=== PATIENT | female | born 1935 | race Caucasian/White ===

== ENCOUNTER → 2018-11-28 10:00 | Observation (INO) ==
--- NOTE | 2018-11-27 11:21 | History & Physical Report ---
*Admission Date: 11/27/18 *Chief complaint: MOSQUEDA and HTN *History of present illness: Piper Horowitz is an 83-year-old female who is presented to clinic twice this week due to elevated blood pressure. Previously controlled on lisinopril 5 mg twice a day with normal values. Earlier this week she came in hypertensive and was increased on lisinopril to 10 mg twice a day. Presented to clinic today due to headache, mild dizziness, and significantly elevated blood pressure. States she took her 10 mg lisinopril this morning and her blood pressure at home on home monitoring was higher than in clinic. Reportedly 190s/100s at home. Denies chest pain, shortness of breath, lower extremity edema, palpitations. At this time given worsening hypertension, dizziness, headache, will admit patient for hypertensive urgency and further work-up. Transferred to [facility] from clinic for direct admission. [facility] History I have reviewed the patient's past medical history: Yes Medical History: Reports:: Hyperlipidemia, Hypertension Denies:: Atrial Fibrillation, Congenital Heart Disease, Coronary Artery Disease, Diabetes Mellitus Type 2, Renal Disease *Have you ever received a pneumonia vaccine?: Yes *Have you received a flu vaccine this season?: Yes Laterality Cases: Left: Carpal Tunnel Release Other Surgeries: Yes: Colonoscopy Amputation: No Fractures: Yes (left arm) - *Social History Educational Level: Completed High School Smoking Status: Never smoker Alcohol Intake: never *Occupational Status:: retired *Travel in the last 8 weeks: None Family Hx:: No significant family history, Non-contributory Review of Systems - Review of Systems Review of systems:: pertinent systems reviewed and negative unless documented below Meds Allergies Allergy/AdvReac Type Severity Reaction Status Date / Time Morphine Allergy Unknown Uncoded 06/17/17 14:10 Exam I & O for Last 24 hours: Intake & Output 11/24/18 11/25/18 11/26/18 11/27/18 23:59 23:59 23:59 23:59 Weight 65.317 kg Narrative: Well-developed 83-year-old female who appears stated age. In no acute distress Not dyspneic on interview, lungs clear to auscultation with no crackles or rhonchi Heart regular with no murmur, no peripheral edema Extraocular movement intact, no focal neurologic deficits, cranial nerves II through XII intact Abdomen soft, nontender, normal bowel sounds Skin without rash Alert and oriented to person and place - *Routine HEENT Exam Head: Present: normocephalic Eye: Present: EOMI, PERRL ENT: Present: mucous membranes moist - *Routine Neck Exam Present: supple. Absent: lymphadenopathy - *Routine Respiratory Exam Present: CTA bilaterally - *Routine Cardiovascular Exam Present: RRR - *Routine Abdominal Exam Present: soft, normoactive bowel sounds. Absent: tenderness - *Routine Extremities Exam Absent: cyanosis, clubbing, edema - *Routine Skin Exam Present: warm. Absent: rash - *Routine Neurological Exam Present: alert, oriented X3 Assessment and Plan (1) Hypertensive urgency Current visit: Yes Status: Acute Category: Medical Code(s): I16.0 - Hypertensive urgency - Assessment and plan all Dx Assessment and Plan for all problems:: Blood pressure significantly elevated, symptomatic from them. Will obtain labs. Increase oral medications as prescribed. Monitor for blood pressure improvement over the course of the day. Admit under observation for further management.
[2018-11-27 11:47] LABS: Basophils % 0.7 % (0.1-2.0); Eosinophils # 0.2 K/mm3 (0.0-0.4); Hematocrit 36.6 % (37.0-47.0); Hemoglobin 12.2 g/dL (12.2-16.2); Lymphocytes # 1.2 K/mm3 (0.7-4.5); Lymphocytes % 30.2 % (10-50); Mean Corpuscular HGB Conc 33.3 g/dL (31.8-35.4); Mean Corpuscular Hemoglobin 29.8 pg (27.0-31.2); Mean Corpuscular Volume 89.4 fl (81-99); Mean Platelet Volume 8.8 fl (7.4-10.4); Monocytes # 0.2 K/mm3 (0.1-1.0); Monocytes % 6.3 % (1.7-9.3); Neutrophils # 2.2 K/mm3 (1.8-7.8); Neutrophils % 57.7 % (37.0-80.0); Platelet Count 166 K/mm3 (142-424); Red Cell Distribution Width 13.5 % (11.5-17.5); White Blood Count 3.8 K/mm3 (4.8-10.8)
[2018-11-27 11:52] LABS: Albumin Level 3.6 gm/dL (3.4-5.0); Anion Gap 15.3 mEq/L (5-15); Bilirubin,Total 0.8 mg/dL (0.2-1.0); Calcium 8.9 mg/dL (8.5-10.1); Globulin 3.5 gm/dl (1.3-3.2); Potassium 4.3 mmoL/L (3.5-5.1); Total Protein,Serum 7.1 gm/dL (6.4-8.2)
--- NOTE | 2018-11-27 11:56 | Pharmacy Consult Notes ---
[facility] Pharmacy VTE Monitoring - Patient Demographics Admission date: 11/27/18 Report Date: 11/27/18 Time: 11:55 Allergies/Adverse Reactions: Patient Allergies Morphine Allergy (Unknown, Uncoded 06/17/17 14:10) Height: 1.63 m Weight: 65.317 kg - VTE Risk Labs: VTE Related Lab Results Hgb 12.2 g/dL (12.2-16.2) 11/27/18 11:35 Hct 36.6 % (37.0-47.0) L 11/27/18 11:35 Plt Count 166 K/mm3 (142-424) 11/27/18 11:35 BUN 26 mg/dL (7-18) H 11/27/18 11:35 Creatinine 1.47 mg/dL (0.55-1.02) H 11/27/18 11:35 Estimated Creat Clear 29 mL/min (50-200) 11/27/18 11:35 Was VTE Risk Assessment Performed: Yes VTE Risk Level: Very Low Risk - Prophylaxis VTE Prophylaxis Ordered?: Yes Types of VTE Prophylaxis: TEDS Knee High Location of Applied Device: Bilateral Lower Extremeties - VTE Diagnosis Confirmed Treatment or plan recommended: Continue Current Treatment
[2018-11-28 06:52] LABS: Albumin Level 3.1 gm/dL (3.4-5.0); Albumin/Globulin Ratio 1.1 (1.1-1.8); Anion Gap 13.6 mEq/L (5-15); Bilirubin,Total 0.6 mg/dL (0.2-1.0); Calcium 8.6 mg/dL (8.5-10.1); Globulin 2.7 gm/dl (1.3-3.2); Potassium 4.6 mmoL/L (3.5-5.1); Total Protein,Serum 5.8 gm/dL (6.4-8.2)
--- NOTE | 2018-11-28 07:51 | Discharge Summary ---
General - General Admission date:: 11/27/18 Discharge date: 11/28/18 HPI HPI: Piper Horowitz is an 83-year-old female who is presented to clinic twice this week due to elevated blood pressure. Previously controlled on lisinopril 5 mg twice a day with normal values. Earlier this week she came in hypertensive and was increased on lisinopril to 10 mg twice a day. Presented to clinic today due to headache, mild dizziness, and significantly elevated blood pressure. States she took her 10 mg lisinopril this morning and her blood pressure at home on home monitoring was higher than in clinic. Reportedly 190s/100s at home. Denies chest pain, shortness of breath, lower extremity edema, palpitations. At this time given worsening hypertension, dizziness, headache, will admit patient for hypertensive urgency and further work-up. Transferred to [facility] from clinic for direct admission. Hospital Course Hospital Course: Patient was admitted, troponins were negative, other labs were unremarkable and imaging studies were unremarkable as well. Patient's neurologic exam was unremarkable and she was started on regular doses of her blood pressure medicines. Overnight these did very nicely, and this morning she is feeling much better, blood pressure is normalized in the 130 range systolically. Patient will be discharged home. She has scheduled follow-up with me on Friday. We will make sure she has prescriptions for blood pressure medications. Of note she has been in the process of worked up for dementia issues and medicine compliance at home may be an issue. Objective Vital signs: Temp Pulse Resp BP Pulse Ox 97.0 F L 68 18 138/65 98 11/28/18 05:52 11/28/18 05:52 11/28/18 05:52 11/28/18 05:52 11/28/18 05:52 Narrative: Heart rate regular, no murmurs. Lungs clear, neurologic exam intact, patient is pleasant, talkative. Oropharynx clear, no edema. Results Labs on day of discharge: Labs from last 24 hours 11/28/18 11/27/18 11/27/18 06:05 11:35 11:35 WBC 3.8 L RBC 4.10 L Hgb 12.2 Hct 36.6 L MCV 89.4 MCH 29.8 MCHC 33.3 RDW 13.5 Plt Count 166 MPV 8.8 Neut % (Auto) 57.7 Lymph % (Auto) 30.2 Luce % (Auto) 6.3 Eos % (Auto) 5.0 Baso % (Auto) 0.7 Neut # (Auto) 2.2 Lymph # (Auto) 1.2 Luce # (Auto) 0.2 Eos # (Auto) 0.2 Baso # (Auto) 0.0 Sodium 143 144 Potassium 4.6 4.3 Chloride 109 H 108 H Carbon Dioxide 25 25 Anion Gap 13.6 15.3 H BUN 27 H 26 H Creatinine 1.48 H 1.47 H Estimated Creat Clear 30 29 Estimated GFR 34 L 34 L Est GFR ( Amer) 41 L 41 L Glucose 92 94 Calcium 8.6 8.9 Total Bilirubin 0.6 0.8 AST 13 L 15 ALT 18 19 Alkaline Phosphatase 71 80 Total Protein 5.8 L 7.1 Albumin 3.1 L D 3.6 Globulin 2.7 3.5 H Albumin/Globulin Ratio 1.1 1.0 L DS: Diagnosis - Discharge Diagnosis (1) Hypertensive urgency Status: Resolved Discharge Plan - Patient Discharge Instructions ACTIVITY: Continue current activity DIET: continue same diet - Follow up Plan Follow up with: Mundo Ritter MD [Staff Physician] - 11/30/18 2:00 pm Disposition: Home, Self-Snf Medications: Home Medications Medication Instructions Recorded Confirmed Type Aspirin [Aspirin 81mg EC Tab] 81 mg PO DAILY 11/27/18 11/27/18 History Cetirizine HCl 10 mg PO DAILY 11/27/18 11/27/18 History Cholecalciferol (Vitamin D3) 5,000 unit PO DAILY 11/27/18 11/27/18 History [Vitamin D3] Gabapentin [Gabapentin 100mg Cap] 100 mg PO TID 11/27/18 11/27/18 History Lisinopril [Lisinopril 10mg Tab] 10 mg PO DAILY 11/27/18 11/27/18 History Meloxicam 15 mg PO DAILY 11/27/18 11/27/18 History Carvedilol [Coreg 12.5mg 12.5 mg PO BID #60 tab 11/28/18 Rx Tablet] Lisinopril [Zestril 20mg tab] 20 mg PO BID #60 tab 11/28/18 Rx Prescriptions/Medication Reconciliation: New Lisinopril [Zestril 20mg tab] 20 mg PO BID #60 tab Carvedilol [Coreg 12.5mg Tablet] 12.5 mg PO BID #60 tab Continued Aspirin [Aspirin 81mg EC Tab] 81 mg PO DAILY Meloxicam 15 mg PO DAILY Gabapentin [Gabapentin 100mg Cap] 100 mg PO TID Cholecalciferol (Vitamin D3) [Vitamin D3] 5,000 unit PO DAILY Cetirizine HCl 10 mg PO DAILY Discontinued Lisinopril [Lisinopril 10mg Tab] 10 mg PO DAILY
== END | disposition home or self-care (01) ==
LOC: 2ND
PROVIDERS: ADMIT Internal Medicine Adolescent Medicine; ATTEND Internal Medicine Adolescent Medicine
DX: I16.0 Hypertensive urgency
CPT/HCPCS: 36415; 80053; 85025; G0378